=== PATIENT | male | born 1955 | race Caucasian/White ===

== ENCOUNTER 2017-06-09 01:33 | Inpatient (IN) | payer OTHER ==
[~2017-06-09] VITALS: Ht 170.2 cm; Wt 80.0 kg
[2017-06-09] VITALS (34 sets, daily range): BP systolic 103–150; BP diastolic 60–88
[2017-06-09 02:35] LABS: BASOPHIL COUNT 0.1 K/uL (0-0.1); EOSINOPHIL (%) 3.2 % (0-5); EOSINOPHIL COUNT 0.1 K/uL (0-0.3); HEMATOCRIT 26.3 % (38.0-50.0); IMMATURE GRANULOCYTE (%) 0.5 % (0.0-0.7); INSTRUMENT ABS NEUTROPHIL CT 2.1 K/uL; MCH 34.1 PG (29.0-34.0); MCHC 34.2 G/DL (30.0-36.0); MCV 99.6 FL (86-99); MEAN PLAT.VOLUME 10.3 uM^3 (9.0-12.4); MONOCYTE (%) 17.6 % (3-12); MONOCYTE COUNT 0.7 K/uL (0-0.8); NEUTROPHIL (%) 51.8 % (45-76); NEUTROPHIL COUNT 2.1 K/uL (1.8-6.4); PLATELET COUNT 75 K/uL (156-360); RBC DIS.WIDTH-CV 17.4 % (11.8-14.6); RBC DIS.WIDTH-SD 64.2 % (39-53); RED BLOOD COUNT 2.64 M/uL (4.00-5.50); WHITE BLOOD COUNT 4.1 K/uL (4.1-10.2)
[2017-06-09 02:44] LABS: INTER. NORMALIZED RATIO 2.5; PROTHROMBIN TIME 27.9 SEC (10.2-12.9)
[2017-06-09 02:45] LABS: CHLORIDE 108 mEq/L (99-109); POTASSIUM 4.5 mEq/L (3.7-5.4); SODIUM 136 mEq/L (136-147)
[2017-06-09 02:46] LABS: PTT 50.3 SEC (25-37)
[2017-06-09 02:47] LABS: GLUCOSE 95 mg/dL (70-99)
[2017-06-09 02:49] LABS: ANION GAP 8 MEQ/L (2-14); TOTAL BILIRUBIN 5.5 mg/dL (0.0-1.0)
[2017-06-09 02:51] LABS: ALKALINE PHOSPHATASE 95 IU/L (3-129); GFR ESTIMATE (CALCULATED) > 59 mL/min/
[2017-06-09 02:52] LABS: UREA NITROGEN (BUN) 15 mg/dL (9-23)
[2017-06-09 02:53] LABS: DIRECT BILIRUBIN 2.1 mg/dL (0.0-0.3)
[2017-06-09 02:57] LABS: TROP-I INTERPRETATION NEGATIVE; TROPONIN-I 0.02 ng/mL (0.0-0.30)
[2017-06-09 08:29] LABS: METH RESISTANT S AUREUS PCR NEGATIVE (NEGATIVE)
[2017-06-09 08:33] LABS: PROBE CHECK PASS; SPECIMEN PROCESSING CONTROL PASS
[2017-06-09 16:26] LABS: INTER. NORMALIZED RATIO 1.6; PROTHROMBIN TIME 17.9 SEC (10.2-12.9)
[2017-06-09 16:28] LABS: PTT 36.2 SEC (25-37)
[2017-06-09] MEDS ORDERED: FOLIC ACID1 MG PO (20:58)
[2017-06-09] MEDS ORDERED: MAGNESIUM OXID500 M1 PO (20:59)
[2017-06-09] MEDS ORDERED: LASIX20 MG PO (20:59)
[2017-06-09] MEDS ORDERED: LOPRESSOR25 MG PO (21:00)
[2017-06-09] MEDS ORDERED: OMEPRAZOLE20 MG PO (21:01)
[2017-06-09] MEDS ORDERED: MULTIPLE VITAM1 EACH PO (21:01)
[2017-06-09] MEDS ORDERED: SPIRONOLACTONE50 MG PO (21:02)
[2017-06-09] MEDS ORDERED: THIAMINE HCL100 MG PO (21:04)
[2017-06-10] VITALS (17 sets, daily range): BP systolic 111–144; BP diastolic 62–94
[2017-06-10 05:37] LABS: INTER. NORMALIZED RATIO 1.6; PROTHROMBIN TIME 17.8 SEC (10.2-12.9)
[2017-06-10 05:39] LABS: PTT 37.4 SEC (25-37)
[2017-06-10 05:44] LABS: ALKALINE PHOSPHATASE 106 IU/L (3-129); ANION GAP 10 MEQ/L (2-14); ANION GAP 8 MEQ/L (2-14); CHLORIDE 105 MEQ/L (99-109); GFR ESTIMATE (CALCULATED) > 59 mL/min/; GLUCOSE 129 mg/dL (70-99); POTASSIUM 3.6 MEQ/L (3.7-5.4); SAMPLE HEMOLYSIS CHECK 0; SAMPLE ICTERIC CHECK 2; SAMPLE LIPEMIA CHECK 0; SODIUM 135 MEQ/L (136-147); SODIUM 137 MEQ/L (136-147); TOTAL BILIRUBIN 6.4 MG/DL (0.0-1.0); UREA NITROGEN (BUN) 10 mg/dL (9-23); UREA NITROGEN (BUN) 11 mg/dL (9-23)
[2017-06-10 05:57] LABS: EOSINOPHIL (%) 3.1 % (0-5); EOSINOPHIL COUNT 0.1 K/uL (0-0.3); HEMATOCRIT 26.7 % (38.0-50.0); IMMATURE GRANULOCYTE (%) 0.3 % (0.0-0.7); INSTRUMENT ABS NEUTROPHIL CT 1.5 K/uL; LYMPHOCYTE COUNT 0.7 K/uL (1.0-2.8); MCH 34.9 PG (29.0-34.0); MCHC 33.3 G/DL (30.0-36.0); MEAN PLAT.VOLUME 10.1 uM^3 (9.0-12.4); MONOCYTE (%) 20.3 % (3-12); MONOCYTE COUNT 0.6 K/uL (0-0.8); NEUTROPHIL (%) 50.2 % (45-76); NEUTROPHIL COUNT 1.5 K/uL (1.8-6.4); PLATELET COUNT 81 K/uL (156-360); RBC DIS.WIDTH-CV 17.3 % (11.8-14.6); RBC DIS.WIDTH-SD 66.4 % (39-53); RED BLOOD COUNT 2.55 M/uL (4.00-5.50); WHITE BLOOD COUNT 2.9 K/uL (4.1-10.2)
[2017-06-10 05:58] LABS: MCV 104.7 FL (86-99)
[2017-06-11 03:52] VITALS: BP 131/72
[2017-06-11 06:03] LABS: BASOPHIL COUNT 0.1 K/uL (0-0.1); EOSINOPHIL (%) 4.9 % (0-5); EOSINOPHIL COUNT 0.2 K/uL (0-0.3); HEMATOCRIT 23.5 % (38.0-50.0); IMMATURE GRANULOCYTE (%) 0.3 % (0.0-0.7); INSTRUMENT ABS NEUTROPHIL CT 1.8 K/uL; LYMPHOCYTE COUNT 0.8 K/uL (1.0-2.8); MCH 34.2 PG (29.0-34.0); MCHC 33.6 G/DL (30.0-36.0); MCV 101.7 FL (86-99); MEAN PLAT.VOLUME 10.1 uM^3 (9.0-12.4); MONOCYTE (%) 19.3 % (3-12); MONOCYTE COUNT 0.7 K/uL (0-0.8); NEUTROPHIL (%) 52.5 % (45-76); NEUTROPHIL COUNT 1.8 K/uL (1.8-6.4); PLATELET COUNT 71 K/uL (156-360); RBC DIS.WIDTH-CV 17.2 % (11.8-14.6); RBC DIS.WIDTH-SD 64.1 % (39-53); RED BLOOD COUNT 2.31 M/uL (4.00-5.50); WHITE BLOOD COUNT 3.5 K/uL (4.1-10.2)
[2017-06-11 06:53] LABS: ANION GAP 6 MEQ/L (2-14); CHLORIDE 104 MEQ/L (99-109); GFR ESTIMATE (CALCULATED) > 59 mL/min/; GLUCOSE 118 mg/dL (70-99); POTASSIUM 4.1 MEQ/L (3.7-5.4); SAMPLE HEMOLYSIS CHECK 0; SAMPLE ICTERIC CHECK 1; SAMPLE LIPEMIA CHECK 0; SODIUM 133 MEQ/L (136-147); UREA NITROGEN (BUN) 7 mg/dL (9-23)
[2017-06-11 07:58] VITALS: BP 126/70
[2017-06-11 11:42] VITALS: BP 131/83
[2017-06-11 15:56] VITALS: BP 126/70
[2017-06-11 20:35] VITALS: BP 130/68
[2017-06-11 23:24] VITALS: BP 124/70
[2017-06-12 05:59] LABS: HEMATOCRIT 25.5 % (38.0-50.0); MCH 34.5 PG (29.0-34.0); MCHC 33.7 G/DL (30.0-36.0); MCV 102.4 FL (86-99); MEAN PLAT.VOLUME 10.2 uM^3 (9.0-12.4); PLATELET COUNT 71 K/uL (156-360); RBC DIS.WIDTH-CV 17.3 % (11.8-14.6); RED BLOOD COUNT 2.49 M/uL (4.00-5.50); WHITE BLOOD COUNT 4.4 K/uL (4.1-10.2)
[2017-06-12 06:20] LABS: ALKALINE PHOSPHATASE 95 IU/L (3-129); ANION GAP 7 MEQ/L (2-14); CHLORIDE 103 MEQ/L (99-109); GFR ESTIMATE (CALCULATED) > 59 mL/min/; GLUCOSE 91 mg/dL (70-99); MAGNESIUM 1.6 mg/dl (1.3-2.7); POTASSIUM 4.1 MEQ/L (3.7-5.4); SAMPLE HEMOLYSIS CHECK 0; SAMPLE ICTERIC CHECK 2; SAMPLE LIPEMIA CHECK 0; SODIUM 131 MEQ/L (136-147); TOTAL BILIRUBIN 5.1 MG/DL (0.0-1.0); UREA NITROGEN (BUN) 8 mg/dL (9-23)
[2017-06-12 08:00] VITALS: BP 129/66
[2017-06-12 12:00] VITALS: BP 127/70
[2017-06-12 16:15] VITALS: BP 113/94
[2017-06-12 19:31] VITALS: BP 112/58
[2017-06-13] VITALS (8 sets, daily range): BP systolic 117–154; BP diastolic 57–77
[2017-06-13 07:13] LABS: EOSINOPHIL (%) 7.8 % (0-5); EOSINOPHIL COUNT 0.3 K/uL (0-0.3); HEMATOCRIT 24.2 % (38.0-50.0); IMMATURE GRANULOCYTE (%) 0.5 % (0.0-0.7); INSTRUMENT ABS NEUTROPHIL CT 1.8 K/uL; LYMPHOCYTE COUNT 0.9 K/uL (1.0-2.8); MCH 33.9 PG (29.0-34.0); MCHC 33.1 G/DL (30.0-36.0); MCV 102.5 FL (86-99); MEAN PLAT.VOLUME 9.8 uM^3 (9.0-12.4); MONOCYTE (%) 21.7 % (3-12); MONOCYTE COUNT 0.8 K/uL (0-0.8); NEUTROPHIL (%) 45.7 % (45-76); NEUTROPHIL COUNT 1.8 K/uL (1.8-6.4); PLATELET COUNT 72 K/uL (156-360); RBC DIS.WIDTH-CV 17.5 % (11.8-14.6); RBC DIS.WIDTH-SD 64.9 % (39-53); RED BLOOD COUNT 2.36 M/uL (4.00-5.50); WHITE BLOOD COUNT 3.9 K/uL (4.1-10.2)
[2017-06-13 07:39] LABS: ALKALINE PHOSPHATASE 90 IU/L (3-129); ANION GAP 6 MEQ/L (2-14); CHLORIDE 102 MEQ/L (99-109); DIRECT BILIRUBIN 1.9 mg/dL (0.0-0.3); GFR ESTIMATE (CALCULATED) > 59 mL/min/; GLUCOSE 100 mg/dL (70-99); MAGNESIUM 1.6 mg/dl (1.3-2.7); POTASSIUM 4.1 MEQ/L (3.7-5.4); SAMPLE HEMOLYSIS CHECK 0; SAMPLE ICTERIC CHECK 1; SAMPLE LIPEMIA CHECK 0; SODIUM 131 MEQ/L (136-147); TOTAL BILIRUBIN 4.8 MG/DL (0.0-1.0); UREA NITROGEN (BUN) 8 mg/dL (9-23)
[2017-06-14 03:57] VITALS: BP 124/76
[2017-06-14 05:55] LABS: HEMATOCRIT 27.4 % (38.0-50.0); MCH 33.7 PG (29.0-34.0); MCHC 32.8 G/DL (30.0-36.0); MCV 102.6 FL (86-99); PLATELET COUNT 89 K/uL (156-360); RBC DIS.WIDTH-CV 17.7 % (11.8-14.6); RBC DIS.WIDTH-SD 66.4 % (39-53); RED BLOOD COUNT 2.67 M/uL (4.00-5.50); WHITE BLOOD COUNT 4.6 K/uL (4.1-10.2)
[2017-06-14 06:17] LABS: ANION GAP 8 MEQ/L (2-14); CHLORIDE 100 MEQ/L (99-109); GFR ESTIMATE (CALCULATED) > 59 mL/min/; GLUCOSE 84 mg/dL (70-99); POTASSIUM 4.2 MEQ/L (3.7-5.4); SAMPLE HEMOLYSIS CHECK 0; SAMPLE ICTERIC CHECK 2; SAMPLE LIPEMIA CHECK 0; SODIUM 130 MEQ/L (136-147); UREA NITROGEN (BUN) 8 mg/dL (9-23)
[2017-06-14 08:09] VITALS: BP 129/76
[2017-06-14 16:21] VITALS: BP 120/69
[2017-06-14 23:39] VITALS: BP 134/64
[2017-06-15 03:30] VITALS: BP 107/61
[2017-06-15 07:38] VITALS: BP 137/79
[2017-06-15 11:58] VITALS: BP 118/82
[2017-06-15 12:14] LABS: MCH 33.7 PG (29.0-34.0); MCHC 32.7 G/DL (30.0-36.0); MCV 103.2 FL (86-99); MEAN PLAT.VOLUME 10.5 uM^3 (9.0-12.4); PLATELET COUNT 96 K/uL (156-360); RBC DIS.WIDTH-CV 17.8 % (11.8-14.6); RBC DIS.WIDTH-SD 67.1 % (39-53); RED BLOOD COUNT 2.52 M/uL (4.00-5.50); WHITE BLOOD COUNT 4.4 K/uL (4.1-10.2)
[2017-06-15 13:05] LABS: ANION GAP 5 MEQ/L (2-14); CHLORIDE 100 MEQ/L (99-109); GFR ESTIMATE (CALCULATED) > 59 mL/min/; GLUCOSE 96 mg/dL (70-99); POTASSIUM 3.7 MEQ/L (3.7-5.4); SAMPLE HEMOLYSIS CHECK 0; SAMPLE ICTERIC CHECK 1; SAMPLE LIPEMIA CHECK 0; SODIUM 130 MEQ/L (136-147); UREA NITROGEN (BUN) 9 mg/dL (9-23)
[2017-06-15 16:15] VITALS: BP 110/65
[2017-06-15 19:15] VITALS: BP 107/53
[2017-06-15 23:20] VITALS: BP 104/56
[2017-06-16 08:19] VITALS: BP 127/74
[2017-06-16] MEDS ORDERED: XIFAXAN550 MG PO (11:32)
[2017-06-16 11:54] VITALS: BP 125/70
== END 2017-06-16 13:20 | DRG 83 ==
LOC: EME → EDBD 01:33 → ENRESERV 06:26 → 3EAST 06:26 → 4WEST 06:26 → EDOF 06:26 → ENRESERV 06:34 → 4WEST 07:07 → ENRESERV 06-10 17:46 → 3EAST 06-10 20:45
PROVIDERS: Emergency Medicine; Internal Medicine; Physician Assistant; Specialist; Surgery
DX: S06.5X9A Traumatic subdural hemorrhage with loss of consciousness of unspecified duration, initial encounter (principal); W19.XXXA Unspecified fall, initial encounter; Y92.002 Bathroom of unspecified non-institutional (private) residence as the place of occurrence of the external cause; R40.2422 Glasgow coma scale score 9-12, at arrival to emergency department; D61.818 Other pancytopenia; E72.20 Disorder of urea cycle metabolism, unspecified; K70.31 Alcoholic cirrhosis of liver with ascites; K70.40 Alcoholic hepatic failure without coma; L89.159 Pressure ulcer of sacral region, unspecified stage; D68.59 Other primary thrombophilia; G62.1 Alcoholic polyneuropathy; K76.6 Portal hypertension; K70.11 Alcoholic hepatitis with ascites; T51.0X1A Toxic effect of ethanol, accidental (unintentional), initial encounter; S12.500D Unspecified displaced fracture of sixth cervical vertebra, subsequent encounter for fracture with routine healing; V86.55XD Driver of 3- or 4- wheeled all-terrain vehicle (ATV) injured in nontraffic accident, subsequent encounter; F10.20 Alcohol dependence, uncomplicated; M54.30 Sciatica, unspecified side; I73.9 Peripheral vascular disease, unspecified; Z95.820 Peripheral vascular angioplasty status with implants and grafts; Z87.891 Personal history of nicotine dependence; Z56.0 Unemployment, unspecified
CPT/HCPCS: 49083; 70450; 71010; 72125; 72156; 80048; 80048 91; 80053; 80076; 82040; 82140; 83605; 83735; 84100; 84484; 85025; 85025 91; 85027; 85610; 85730; 86850; 86900; 86901; 87641; 97530 GO; 97530 GP; 99281; 99284; J2060; J3411; J3430; J3475; J7030; J7050; P9017; P9035; P9047; S0028